=== PATIENT | female | born 1960 | race Caucasian/White ===

== ENCOUNTER 2020-12-02 09:40 | Day surgery (SDC) | payer OTHER ==
[~2020-12-02] VITALS: Ht 167.6 cm; Wt 103.6 kg
[~2020-12-02 09:40] MED LIST: SODIUM CHLORIDE 0.9% 1,000 ML IV ONE
[2020-12-02] MEDS ORDERED: LIDOCAINE/PF 2% 5 ML SYRINGE IVP ONE (09:41)
[2020-12-02] MEDS ORDERED: PROPOFOL 1% 20 ML VIAL IVP ONE (09:41)
[2020-12-02 10:28] LABS: COVID AG,FIA SOURCE NASAL SWAB
[2020-12-02 10:56] LABS: GLUCOMETER DEV NAME(LOC) SDS.; GLUCOSE,POINT OF CARE 93 MG/DL (70-110)
== END 2020-12-02 13:15 | disposition home or self-care (01) ==
LOC: SURGERY 09:40
PROVIDERS: ATTEND Student in an Organized Health Care Education/Training Program
DX: Z09 Encounter for follow-up examination after completed treatment for conditions other than malignant neoplasm (principal); D12.4 Benign neoplasm of descending colon; D12.5 Benign neoplasm of sigmoid colon; E11.22 Type 2 diabetes mellitus with diabetic chronic kidney disease; I12.9 Hypertensive chronic kidney disease with stage 1 through stage 4 chronic kidney disease, or unspecified chronic kidney disease; N18.9 Chronic kidney disease, unspecified; E11.51 Type 2 diabetes mellitus with diabetic peripheral angiopathy without gangrene; N18.6 End stage renal disease; I12.0 Hypertensive chronic kidney disease with stage 5 chronic kidney disease or end stage renal disease; K64.8 Other hemorrhoids; K43.9 Ventral hernia without obstruction or gangrene; Z98.890 Other specified postprocedural states; Z86.73 Personal history of transient ischemic attack (TIA), and cerebral infarction without residual deficits; E78.00 Pure hypercholesterolemia, unspecified; Z86.010 Personal history of colon polyps; Z87.11 Personal history of peptic ulcer disease
CPT/HCPCS: 45380; 45385; 82962; 87426; 88305; C1769; C9803; J2704; J3490